=== PATIENT | female | born 1975 | race Two or more races ===

== ENCOUNTER 2016-07-30 10:23 | Emergency (ER) | payer MEDICAID ==
[~2016-07-30] VITALS: Ht 170.2 cm; Wt 72.6 kg
[2016-07-30 10:38] VITALS: BP 108/70
== END 2016-07-30 13:31 | disposition home or self-care (01) ==
LOC: ER 10:24
DX: L03.211 Cellulitis of face (principal); Z98.818 Other dental procedure status